=== PATIENT | male | born 1995 | race Caucasian/White ===

== ENCOUNTER 2020-07-13 07:42 | Emergency (ER) | payer OTHER ==
[2020-07-13 08:42] LABS: Absolute Lymphocytes (CBC) 1.6 K/uL (0.7-4.9); Basophils % 0.7 % (0-1.3); Hematocrit 45.7 % (39.6-49.0); Lymphocytes % 21.7 % (15.3-44.8); MPV 9.7 fL (7.6-11.3); RBC Red Blood Cell Count 5.32 M/uL (4.33-5.43)
[2020-07-13 08:52] LABS: Potassium 4.1 mmol/L (3.5-5.1)
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
[2020-07-13 13:58] VITALS: TEMP 98.3
[2020-07-13 14:07] VITALS: BP 120/80; O2SAT 100
== END 2020-07-13 09:36 | disposition home or self-care (01) ==
LOC: ER 07:42
DX: S16.1XXA Strain of muscle, fascia and tendon at neck level, initial encounter (principal); S39.012A Strain of muscle, fascia and tendon of lower back, initial encounter; K40.90 Unilateral inguinal hernia, without obstruction or gangrene, not specified as recurrent; V49.40XA Driver injured in collision with unspecified motor vehicles in traffic accident, initial encounter; F17.210 Nicotine dependence, cigarettes, uncomplicated
CPT/HCPCS: 85025; 80048; 36415; 70491; 74177; 99283; Q9967 ×2

== ENCOUNTER 2020-11-05 11:11 | Emergency (ER) | payer SELFPAY ==
--- NOTE | 2020-11-05 12:29 | EDPHYS ---
Physician Documentation [facility] Name: Cliff Tate Age: 25 yrs Sex: Male : 1995 Arrival Date: 11/05/2020 Time: 11:14 Bed 25 Private MD: ED Physician Ronnie Gunter HPI: 11/05 12:24 This 25 yrs old Male presents to ER via Ambulatory with complaints of Posion jmm Kami. 12:24 The patient's rash thought to be caused by Dermatitis Contact allergy. Onset: The jmm symptoms/episode began/occurred gradually, 1 day(s) ago. Associated signs and symptoms: Pertinent positives: itching, Pertinent negatives: difficulty breathing, fever, nausea, swelling of lips, swelling of throat, swelling of tongue, vomiting, wheezing. This is a 25 year old male with no chronic medical conditions that presents to the ED with complaints of rash to the arms and face. Patient states he was cleaning his dog kennel which is outside this past Tuesday. Symptoms developed yesterday. Denies fever. . Historical: - Allergies: 11:27 No Known Allergies; ll1 - PMHx: 11:27 None; ll1 - PSHx: 11:27 None; ll1 - Immunization history:: Flu vaccine is not up to date. - Social history:: Smoking status: Patient reports the use of cigarette tobacco products, denies chronic smoking, but will smoke occasionally. ROS: 12:24 Constitutional: Negative for fever, chills, and weight loss, Cardiovascular: Negative jmm for chest pain, palpitations, and edema, Respiratory: Negative for shortness of breath, cough, wheezing, and pleuritic chest pain. 12:24 Skin: Positive for rash. 12:24 All other systems are negative. Exam: 12:24 Constitutional: This is a well developed, well nourished patient who is awake, alert, jmm and in no acute distress. 12:24 Eyes: EOMI, no conjunctival erythema appreciated ENT: Moist Mucus Membranes Neck: Trachea midline, Supple Chest/axilla: Normal chest wall appearance and motion. Cardiovascular: Regular rate and rhythm. No edema appreciated Respiratory: Normal respirations, no respiratory distress appreciated Abdomen/GI: Non distended, soft Back: Normal ROM 12:24 MS/ Extremity: Moves all extremities, no obvious deformities appreciated, no edema noted to the lower extremities Neuro: Awake and alert, normal gait Psych: Behavior is normal, Mood is normal, Patient is cooperative and pleasant 12:24 Head/face: Noted is rash, consistent with poison kami 12:24 Skin: contact dermatitis, on the face, right arm and left arm. Vital Signs: 11:25 Pulse 67; Resp 16; Temp 97.9; Pulse Ox 99% ; Weight 102.06 kg; Height 6 ft. 0 in. ll1 (182.88 cm); Pain 0/10; 11:25 BP 148 / 85; ll1 12:14 BP 135 / 84; Pulse 75; Resp 16 S; Pulse Ox 98% on R/A; ca1 13:07 BP 131 / 83; Pulse 71; Resp 16 S; Pulse Ox 99% on R/A; ca1 11:25 Body Mass Index 30.52 (102.06 kg, 182.88 cm) ll1 MDM: 12:17 Patient medically screened. [facility] 12:27 Data reviewed: vital signs, nurses notes. Counseling: I had a detailed discussion with chandrika the patient and/or guardian regarding: the historical points, exam findings, and any diagnostic results supporting the discharge/admit diagnosis, the need for outpatient follow up, to return to the emergency department if symptoms worsen or persist or if there are any questions or concerns that arise at home. ED course: Patient is alert and non toxic in appearance in the ED. No signs of resp distress. patient is advised to follow up with pcp and otherwise given strict return precautions. Patient understood and agrees with the plan of care. . Administered Medications: 12:56 Drug: Decadron 10 mg Route: IM; Site: left deltoid; ca1 13:06 Follow up: Response: No adverse reaction ca1 Disposition: 17:53 Co-signature as Attending Physician, Ronnie Gunter MD available for consultation at ps1 all times. Signature for administrative purposes. Did not see or evaluate the patient unless otherwise noted. . Disposition: 11/05/20 12:28 Discharged to Home. Impression: Allergic contact dermatitis. - Condition is Stable. - Discharge Instructions: Poison Kami Dermatitis. - Prescriptions for Hydroxyzine HCl 25 mg Oral Tablet - take 1 tablet by ORAL route every 6 hours As needed; 30 tablet. Prednisone 20 mg Oral Tablet - take 3 tablets by ORAL route once daily for 12 days please take 3 tabs by mouth daily for 3 days, then 2 tabs by mouth daily for 3 days, then 1 tab by mouth daily for 3 days, then 1/2 tab by mouth daily for 3 days.; 20 tablet. - Work release form, Medication Reconciliation Form, Thank You Letter, Antibiotic Education, Prescription Opioid Use form. - Follow up: Private Physician; When: 2 - 3 days; Reason: Recheck today's complaints, Continuance of care, Re-evaluation by your physician. Signatures: Jaylen Barlow PA PA jmm Singer, Phillip, MD MD ps1 Yara Keith, RN RN ca1 Edelmira Zelaya RN RN ll1 Corrections: (The following items were deleted from the chart) 13:07 12:28 11/05/2020 12:28 Discharged to Home. Impression: Allergic contact dermatitis. ca1 Condition is Stable. Forms are Medication Reconciliation Form, Thank You Letter, Antibiotic Education, Prescription Opioid Use. Follow up: Private Physician; When: 2 - 3 days; Reason: Recheck today's complaints, Continuance of care, Re-evaluation by your physician. chandrika
--- NOTE | 2020-11-05 12:29 | ER ---
Nurse's Notes [facility] Name: Cliff Tate Age: 25 yrs Sex: Male : 1995 Arrival Date: 11/05/2020 Time: 11:14 Bed 25 Private MD: Diagnosis: Allergic contact dermatitis Presentation: 11/05 11:25 Chief complaint: Patient states: Rash with itching to arms and face for 2 days. ll1 Believes he has poison eda. No SOB or fever. Coronavirus screen: Client denies travel out of the [place] in the last 14 days. At this time, the client does not indicate any symptoms associated with coronavirus-19. Ebola Screen: Patient denies travel to an Ebola-affected area in the 21 days before illness onset. Initial Sepsis Screen: Does the patient meet any 2 criteria? No. Patient's initial sepsis screen is negative. Does the patient have a suspected source of infection? Yes: Skin breakdown/wound. Risk Assessment: Do you want to hurt yourself or someone else? Patient reports no desire to harm self or others. Onset of symptoms was November 04, 2020. 11:25 Method Of Arrival: [facility] 11:25 Acuity: NICOLA 4 ll1 Historical: - Allergies: 11:27 No Known Allergies; ll1 - PMHx: 11:27 None; ll1 - PSHx: 11:27 None; ll1 - Immunization history:: Flu vaccine is not up to date. - Social history:: Smoking status: Patient reports the use of cigarette tobacco products, denies chronic smoking, but will smoke occasionally. Screenin:14 Abuse screen: Denies threats or abuse. Denies injuries from another. Nutritional ca1 screening: No deficits noted. Tuberculosis screening: No symptoms or risk factors identified. Fall Risk None identified. Assessment: 12:14 General: Appears in no apparent distress. comfortable, Behavior is calm, cooperative, ca1 appropriate for age. Pain: Denies pain. Neuro: Level of Consciousness is awake, alert, obeys commands, Oriented to person, place, time, situation. Respiratory: Airway is patent Respiratory effort is even, unlabored, Respiratory pattern is regular, symmetrical, Breath sounds are clear bilaterally. Denies shortness of breath. EENT: Throat is clear. Derm: Skin is intact, is healthy with good turgor, Skin is pink, warm \T\ dry. Rash noted that is itchy, red, on face, right arm and left arm. Musculoskeletal: Circulation, motion, and sensation intact. Capillary refill < 3 seconds. 13:07 Reassessment: Patient appears in no apparent distress at this time. Patient is alert, ca1 oriented x 3, equal unlabored respirations, skin warm/dry/pink. Vital Signs: 11:25 Pulse 67; Resp 16; Temp 97.9; Pulse Ox 99% ; Weight 102.06 kg; Height 6 ft. 0 in. ll1 (182.88 cm); Pain 0/10; 11:25 BP 148 / 85; ll1 12:14 BP 135 / 84; Pulse 75; Resp 16 S; Pulse Ox 98% on R/A; ca1 13:07 BP 131 / 83; Pulse 71; Resp 16 S; Pulse Ox 99% on R/A; ca1 11:25 Body Mass Index 30.52 (102.06 kg, 182.88 cm) ll1 ED Course: 11:14 Patient arrived in ED. ds1 11:27 Triage completed. ll1 11:28 Arm band placed on. ll1 12:03 Jaylen Barlow PA is PHCP. chandrika 12:03 Ronnie Gunter MD is Attending Physician. chandrika 12:10 Yara Keith, RN is Primary Nurse. ca1 12:14 Patient has correct armband on for positive identification. Bed in low position. Call ca1 light in reach. Side rails up X 1. Pulse ox on. NIBP on. 13:07 No provider procedures requiring assistance completed. Patient did not have IV access ca1 during this emergency room visit. Administered Medications: 12:56 Drug: Decadron 10 mg Route: IM; Site: left deltoid; ca1 13:06 Follow up: Response: No adverse reaction ca1 Outcome: 12:28 Discharge ordered by . chandrika 13:07 Discharged to home ambulatory. ca1 13:07 Condition: stable 13:07 Discharge instructions given to patient, Instructed on discharge instructions, follow up and referral plans. no drinking with medication, no driving heavy equipment, medication usage, Demonstrated understanding of instructions, follow-up care, medications, Prescriptions given X 2. 13:07 Patient left the ED. ca1 Signatures: Jaylen Barlow PA PA Serena Botello ds1 Yara Keith RN RN ca1 Garcia, Edelmira, RN RN ll1
[2020-11-05] MEDS ORDERED: dexAMETHasone 10 MG/ML VIAL ONE (13:12)
[2020-11-05 13:14] VITALS: TEMP 97.9
[2020-11-05 13:16] VITALS: BP 131/83; O2SAT 99
== END 2020-11-05 13:07 | disposition home or self-care (01) ==
LOC: ER 11:11
DX: L23.7 Allergic contact dermatitis due to plants, except food (principal); F17.210 Nicotine dependence, cigarettes, uncomplicated
CPT/HCPCS: 96372; 99283; J1100

== ENCOUNTER 2021-08-22 10:52 | Inpatient (IN) | payer SELFPAY ==
[2021-08-22] MEDS ORDERED: MORPHINE 4 MG/ML SYR ONE (12:12)
[2021-08-22] MEDS ORDERED: NA CHLORIDE 0.9% 1,000 ML ONE (12:12)
[2021-08-22] MEDS ORDERED: ONDANSETRON 4 MG/2 ML VIAL ONE (12:12)
[2021-08-22] MEDS ORDERED: PIPERACIL/TAZO 3.375 GM VIAL IV ONE (12:30)
[2021-08-22] MEDS ORDERED: NA CHLORIDE 0.9% 100 ML ONE (12:30)
[2021-08-22 12:31] LABS: Absolute Lymphocytes (CBC) 2.8 K/uL (0.7-4.9); Hematocrit 45.1 % (39.6-49.0)
[2021-08-22] MEDS ORDERED: NA CHLORIDE 0.9% 50 ML ONE (12:32)
[2021-08-22 12:47] LABS: ALT/SGPT 88 U/L (12-78); AST/SGOT 34 U/L (15-37); Albumin 3.9 g/dL (3.4-5.0); Alkaline Phosphatase 81 U/L (45-117); BUN Blood Urea Nitrogen 15 mg/dL (7-18); Bicarbonate 27 mmol/L (21-32); Bilirubin Direct < 0.1 mg/dL (0-0.2); Bilirubin Total 0.4 mg/dL (0.2-1.0); Glucose Level 98 mg/dL (74-106); Lipase 60 U/L (73-393); Potassium 4.4 mmol/L (3.5-5.1); Protein, Total 7.7 g/dL (6.4-8.2); Sodium Level 139 mmol/L (136-145)
--- NOTE | 2021-08-22 13:55 | EDPHYS ---
Physician Documentation [facility] Name: Cliff Tate Age: 26 yrs Sex: Male : 1995 Arrival Date: 08/22/2021 Time: 10:56 Bed 2 Private MD: MATTHIAS Physician Zackary Nunes HPI: 08/22 12:10 This 26 yrs old Male presents to ER via Ambulatory with complaints of Hernia. pasquale 12:10 The patient presents with abdominal distention in the left lower quadrant. Onset: The pasquale symptoms/episode began/occurred last night. The patient presents with swelling, tenderness, that is moderate. Onset: The symptoms/episode began/occurred 1 day(s) ago. Modifying factors: The symptoms are alleviated by nothing, remaining still, the symptoms are aggravated by pressure. Associated signs and symptoms: Pertinent positives: abdominal pain. Modifying factors: The symptoms are alleviated by nothing, remaining still, the symptoms are aggravated by jumping, nothing. Severity of pain: At its worst the pain was moderate in the emergency department the pain is unchanged. Historical: - Allergies: 11:25 No Known Allergies; iw - Home Meds: 11:25 None [Active]; iw - PMHx: 11:25 None; iw - PSHx: 11:25 None; iw - Immunization history:: Client reports having NOT received the Covid vaccine. - Social history:: Smoking status: Patient reports the use of cigarette tobacco products, denies chronic smoking, but will smoke occasionally. - Family history:: not pertinent. ROS: 12:10 Constitutional: Negative for fever, chills, and weight loss, Eyes: Negative for injury, pasquale pain, redness, and discharge, ENT: Negative for injury, pain, and discharge, Neck: Negative for injury, pain, and swelling, Cardiovascular: Negative for chest pain, palpitations, and edema, Respiratory: Negative for shortness of breath, cough, wheezing, and pleuritic chest pain, Back: Negative for injury and pain, : Negative for injury, bleeding, discharge, and swelling, MS/Extremity: Negative for injury and deformity, Skin: Negative for injury, rash, and discoloration, Neuro: Negative for headache, weakness, numbness, tingling, and seizure, Psych: Negative for depression, anxiety, suicide ideation, homicidal ideation, and hallucinations, Allergy/Immunology: Negative for hives, rash, and allergies, Endocrine: Negative for neck swelling, polydipsia, polyuria, polyphagia, and marked weight changes, Hematologic/Lymphatic: Negative for swollen nodes, abnormal bleeding, and unusual bruising. 12:10 Abdomen/GI: Positive for abdominal pain, abdominal cramps, of the left lower quadrant. 12:10 : Positive for of the groin and left femoral area. Exam: 12:10 Constitutional: This is a well developed, well nourished patient who is awake, alert, pasquale and in no acute distress. Head/Face: Normocephalic, atraumatic. Eyes: Pupils equal round and reactive to light, extra-ocular motions intact. Lids and lashes normal. Conjunctiva and sclera are non-icteric and not injected. Cornea within normal limits. Periorbital areas with no swelling, redness, or edema. ENT: Nares patent. No nasal discharge, no septal abnormalities noted. Tympanic membranes are normal and external auditory canals are clear. Oropharynx with no redness, swelling, or masses, exudates, or evidence of obstruction, uvula midline. Mucous membranes moist. Neck: Trachea midline, no thyromegaly or masses palpated, and no cervical lymphadenopathy. Supple, full range of motion without nuchal rigidity, or vertebral point tenderness. No Meningismus. Chest/axilla: Normal chest wall appearance and motion. Nontender with no deformity. No lesions are appreciated. Cardiovascular: Regular rate and rhythm with a normal S1 and S2. No gallops, murmurs, or rubs. Normal PMI, no JVD. No pulse deficits. Respiratory: Lungs have equal breath sounds bilaterally, clear to auscultation and percussion. No rales, rhonchi or wheezes noted. No increased work of breathing, no retractions or nasal flaring. Back: No spinal tenderness. No costovertebral tenderness. Full range of motion. Skin: Warm, dry with normal turgor. Normal color with no rashes, no lesions, and no evidence of cellulitis. MS/ Extremity: Pulses equal, no cyanosis. Neurovascular intact. Full, normal range of motion. Neuro: Awake and alert, GCS 15, oriented to person, place, time, and situation. Cranial nerves II-XII grossly intact. Motor strength 5/5 in all extremities. Sensory grossly intact. Cerebellar exam normal. Normal gait. Psych: Awake, alert, with orientation to person, place and time. Behavior, mood, and affect are within normal limits. 12:10 Abdomen/GI: Inspection: distension, that is moderate, in the left lower quadrant, Liver: no appreciated palpable abnormalities, Hernia: noted in the left inguinal area and left femoral area. Vital Signs: 11:24 BP 147 / 81; Pulse 77; Resp 16; Temp 97; Pulse Ox 99% on R/A; Weight 99.79 kg; Height 6 iw ft. (182.88 cm); 12:36 BP 127 / 78; Pulse 66; Resp 18; Pulse Ox 99% on R/A; zapata 13:26 BP 132 / 75; Pulse 69; Resp 18; Pulse Ox 100% ; zapata 16:16 BP 112 / 51; Pulse 80; Resp 18; Pulse Ox 100% on R/A; zapata 17:18 BP 126 / 84; Pulse 61; Resp 16; Pulse Ox 98% on R/A; ww 11:24 Body Mass Index 29.84 (99.79 kg, 182.88 cm) iw MDM: 11:26 Patient medically screened. pasquale 12:14 Differential diagnosis: bowel obstruction, diverticulitis, non-specific abd pain, pasquale pancreatitis. Data reviewed: vital signs, nurses notes, lab test result(s), radiologic studies, CT scan. Data interpreted: child monitor: not applicable for this patient encounter. Pulse oximetry: on room air is 99 %. Counseling: I had a detailed discussion with the patient and/or guardian regarding: the historical points, exam findings, and any diagnostic results supporting the discharge/admit diagnosis, lab results, radiology results, the need for further work-up and treatment in the hospital. 08/22 12:05 Order name: Basic Metabolic Panel; Complete Time: 13:15 pasquale 08/22 12:05 Order name: CBC with Diff; Complete Time: 13:15 pasquale 08/22 12:05 Order name: Hepatic Function; Complete Time: 13:15 pasquale 08/22 12:05 Order name: Lipase; Complete Time: 13:15 pasquale 08/22 14:03 Order name: SARS-COV-2 RT PCR (Document "Date of Onset" if Symptomatic) eb 08/22 14:14 Order name: Urine Dipstick-Ancillary EDMS 08/22 12:05 Order name: IV Saline Lock; Complete Time: 12:26 [facility] 08/22 12:05 Order name: Labs collected and sent; Complete Time: 12: [facility] 08/22 12:05 Order name: Urine Dipstick-Ancillary (obtain specimen); Complete Time: 14: [facility] 08/22 12:05 Order name: CT Abd/Pelvis - PO and IV Contrast pasquale Administered Medications: 12:25 Drug: Zofran (Ondansetron) 4 mg Route: IVP; Site: left antecubital; zapata 12:26 Follow up: Response: No adverse reaction zapata 12: Drug: NS 0.9% 1000 ml Route: IV; Rate: 1 bolus; Site: left antecubital; zapata 14:42 Follow up: IV Status: Completed infusion zapata 12: Drug: morphine 4 mg Route: IVP; Site: left antecubital; zapata 12:27 Follow up: Response: No adverse reaction zapata 12:32 Drug: Zosyn (piperacillin-tazobactam) 3.375 grams Route: IVPB; Infused Over: 60 mins; zapata Site: left antecubital; 14:42 Follow up: IV Status: Completed infusion zpaata Disposition Summary: 08/22/21 13:55 Hospitalization Ordered Hospitalization Status: Observation pasquale Provider: Gunner Augustine cha Location: Telemetry/MedSurg (Inpatient) pasquale Condition: Stable pasquale Problem: new pasquale Symptoms: are unchanged pasquale Bed/Room Type: Standard [facility] Room Assignment: [facility](08/22/21 17:35) dw Diagnosis - Unilateral inguinal hernia, with obstruction, without gangrene, recurrent apsquale Forms: - Medication Reconciliation Form pasquale - SBAR form [facility] Signatures: Dispatcher [employer] Ashley Cartagena RN RN dw Anderson, Corey, MD MD cha Williams, Irene, RN RN iw Au-Stager, Heather, RN RN ha Corrections: (The following items were deleted from the chart) 17:35 13:55 [facility]
--- NOTE | 2021-08-22 13:55 | ER ---
Nurse's Notes [facility] Name: Cliff Tate Age: 26 yrs Sex: Male : 1995 Arrival Date: 08/22/2021 Time: 10:56 Bed 2 Private MD: Diagnosis: Unilateral inguinal hernia, with obstruction, without gangrene, recurrent Presentation: 08/22 11:24 Chief complaint: Patient states: has an inguinal hernia on left side X 1 year, has iw always been able to push it back in but for past 12 hours has not been able to push it back in and it's hard and painful. Coronavirus screen: At this time, the client does not indicate any symptoms associated with coronavirus-19. Ebola Screen: Patient negative for fever greater than or equal to 101.5 degrees Fahrenheit, and additional compatible Ebola Virus Disease symptoms Patient denies exposure to infectious person. Patient denies travel to an Ebola-affected area in the 21 days before illness onset. No symptoms or risks identified at this time. Initial Sepsis Screen: Does the patient meet any 2 criteria? No. Patient's initial sepsis screen is negative. Does the patient have a suspected source of infection? No. Patient's initial sepsis screen is negative. Risk Assessment: Do you want to hurt yourself or someone else? Patient reports no desire to harm self or others. Onset of symptoms was August 22, 2021. 11:24 Method Of Arrival: Ambulatory iw 11:24 Acuity: NICOLA 3 iw Historical: - Allergies: 11:25 No Known Allergies; iw - Home Meds: 11:25 None [Active]; iw - PMHx: 11:25 None; iw - PSHx: 11:25 None; iw - Immunization history:: Client reports having NOT received the Covid vaccine. - Social history:: Smoking status: Patient reports the use of cigarette tobacco products, denies chronic smoking, but will smoke occasionally. - Family history:: not pertinent. Screenin:38 Abuse screen: Denies threats or abuse. Denies injuries from another. Nutritional zapata screening: No deficits noted. Tuberculosis screening: No symptoms or risk factors identified. Fall Risk None identified. Assessment: 11:38 General: Appears uncomfortable, Behavior is calm, cooperative. Pain: Complains of pain zapata in abdomen and left inner thigh Quality of pain is described as pressure, sharp. GI: Reports lower abdominal pain. 12:40 Reassessment: Patient appears in no apparent distress at this time. No changes from ww previously documented assessment. Patient and/or family updated on plan of care and expected duration. Pain level reassessed. Patient is alert, oriented x 3, equal unlabored respirations, skin warm/dry/pink. 14:00 Reassessment: Patient appears in no apparent distress at this time. No changes from ww previously documented assessment. Patient and/or family updated on plan of care and expected duration. Pain level reassessed. Patient is alert, oriented x 3, equal unlabored respirations, skin warm/dry/pink. 16:55 Reassessment: Patient appears in no apparent distress at this time. No changes from ww previously documented assessment. Patient and/or family updated on plan of care and expected duration. Pain level reassessed. Patient is alert, oriented x 3, equal unlabored respirations, skin warm/dry/pink. Vital Signs: 11:24 BP 147 / 81; Pulse 77; Resp 16; Temp 97; Pulse Ox 99% on R/A; Weight 99.79 kg; Height 6 iw ft. (182.88 cm); 12:36 BP 127 / 78; Pulse 66; Resp 18; Pulse Ox 99% on R/A; zapata 13:26 BP 132 / 75; Pulse 69; Resp 18; Pulse Ox 100% ; zapata 16:16 BP 112 / 51; Pulse 80; Resp 18; Pulse Ox 100% on R/A; zapata 17:18 BP 126 / 84; Pulse 61; Resp 16; Pulse Ox 98% on R/A; ww 11:24 Body Mass Index 29.84 (99.79 kg, 182.88 cm) ED Course: 10:56 Patient arrived in ED. mr 11:25 Triage completed. iw 11:26 Zackary Nunes MD is Attending Physician. pasquale 11:38 Patient has correct armband on for positive identification. zapata 11:38 No provider procedures requiring assistance completed. zapata 11:39 Arm band placed on. zapata 12:19 Warm blanket given. Pulse ox on. NIBP on. mh5 12:26 Basic Metabolic Panel Sent. zapata 12:26 CBC with Diff Sent. zapata 12:26 Hepatic Function Sent. zapata 12:26 Lipase Sent. zapata 12:36 Inserted saline lock: 18 gauge in left antecubital area, using aseptic technique. zapata 13:52 CT Abd/Pelvis - PO and IV Contrast In Process Unspecified. EDMS 13:53 Gunner Augustine MD is Hospitalizing Provider. pasquale Administered Medications: 12:25 Drug: Zofran (Ondansetron) 4 mg Route: IVP; Site: left antecubital; zapata 12:26 Follow up: Response: No adverse reaction zapata 12:26 Drug: NS 0.9% 1000 ml Route: IV; Rate: 1 bolus; Site: left antecubital; zapata 14:42 Follow up: IV Status: Completed infusion zapata 12:26 Drug: morphine 4 mg Route: IVP; Site: left antecubital; zapata 12:27 Follow up: Response: No adverse reaction zapata 12:32 Drug: Zosyn (piperacillin-tazobactam) 3.375 grams Route: IVPB; Infused Over: 60 mins; zapata Site: left antecubital; 14:42 Follow up: IV Status: Completed infusion zapata Outcome: 13:55 Decision to Hospitalize by Provider. pasquale 18:36 Patient left the ED. zapata Signatures: Dispatcher [employer] EDMS Zackary Nunes MD MD cha Rivera, Mary mr Williams, Irene, RN Carin Torres [facility] June Gong, RN RN Ghada Clemens RN RN zapata
--- NOTE | 2021-08-22 14:02 | RAD REPORT ---
EXAM DESCRIPTION: CT - Abdomen Pelvis W Contrast - 08/22/2021 1:52 pm CLINICAL HISTORY: ABD PAIN COMPARISON: No comparisonsAbdomen Pelvis W Contrast dated 07/13/2020 TECHNIQUE: Biphasic, helical CT imaging of the abdomen and pelvis was performed following 100 ml non -ionic IV contrast. Oral contrast was administered. All CT scans are performed using dose optimization technique as appropriate and may include automated exposure control or mA/KV adjustment according to patient size. FINDINGS: No suspicious findings in the lung bases. The liver, spleen, and pancreas show no suspicious findings. Gallbladder and biliary tree are also wi thout suspicious finding. Liver attenuation is borderline to mildly fatty infiltrated. Symmetric renal function is seen with no hydronephrosis or suspicious renal mass. No pyelonephritis o r acute parenchymal process. No bladder abnormalities. No adrenal abnormalities. No gastric dilatation or gastric wall thickening. Small bowel is unremarkable. Appendix is normal. Th e patient has a large left inguinal hernia containing only fat. This is approximately 6 cm in diamete r measuring slightly larger than 2020 study. The herniated fat is congested and edematous. Small left hydrocele is present. No bulky lymphadenopathy or mass. No free air, free fluid or pneumatosis. No suspicious bony findings. IMPRESSION: Large left inguinal hernia 6 cm in diameter, increased slightly in size from 2020, conta ining only fatty tissue. The herniated fat is congested and edematous.
[2021-08-22 14:15] LABS: Urine Blood Negative (Negative); Urine Glucose Negative (Negative); Urine Protein Negative (Negative); Urine Specific Gravity 1.025 (1.005-1.030)
[2021-08-22] MEDS ORDERED: ACETAMINOPHEN 500 MG TAB PO PRN (15:55)
[2021-08-22] MEDS ORDERED: ONDANSETRON 4 MG/2 ML VIAL IV PRN (15:55)
[2021-08-22] MEDS ORDERED: PIPER TAZO 3.375 GM in NA CHLORIDE 0.9% 100 ML IV SCH (17:00)
[2021-08-22] MEDS: MORPHINE 4 MG/ML SYR IV PRN (20:17)
[2021-08-22] MEDS: FAMOTIDINE 20 MG/2 ML VIAL IV SCH (20:17)
[2021-08-22] MEDS: D5 0.45 NS 1,000 ML IV SCH (20:18)
[2021-08-22] MEDS: PIPER TAZO 3.375 GM in NA CHLORIDE 0.9% 100 ML IV SCH (20:18)
[2021-08-22 23:24] VITALS: BMI 29.2
[2021-08-23] MEDS: MORPHINE 4 MG/ML SYR IV PRN ×2 (02:42→08:59)
[2021-08-23] MEDS: D5 0.45 NS 1,000 ML IV SCH (02:44)
[2021-08-23 05:38] LABS: Absolute Lymphocytes (CBC) 2.2 K/uL (0.7-4.9); Hematocrit 42.1 % (39.6-49.0); Lymphocytes % 28.5 % (15.3-44.8); RBC Red Blood Cell Count 4.89 M/uL (4.33-5.43)
[2021-08-23] MEDS: PIPER TAZO 3.375 GM in NA CHLORIDE 0.9% 100 ML IV SCH ×3 (05:51→12:00)
[2021-08-23 06:08] LABS: Albumin 3.2 g/dL (3.4-5.0); Bilirubin Direct 0.1 mg/dL (0-0.2); Bilirubin Total 0.6 mg/dL (0.2-1.0); Protein, Total 6.3 g/dL (6.4-8.2)
[2021-08-23] MEDS: FAMOTIDINE 20 MG/2 ML VIAL IV SCH (09:00)
[2021-08-23] MEDS ORDERED: Ringers Lactate 1,000 ML IV ONE (09:24)
[2021-08-23] MEDS: BUPIVACAINE 0.5% Inj,MDV 50 mL VIAL ONE ×2 (09:38→10:25)
[2021-08-23] MEDS ORDERED: SUCCINYLCHOLINE 20 MG/ML (10 ML) IV ONE (10:00)
[2021-08-23] MEDS ORDERED: FENTANYL CITR 250 MCG/5 ML ONE (10:06)
[2021-08-23] MEDS ORDERED: MIDAZOLAM HCL 2 MG/2 ML INJ ONE (10:06)
[2021-08-23] MEDS ORDERED: propofoL 200 MG/20 ML VIAL IV ONE (10:06)
[2021-08-23] MEDS ORDERED: ROCURONIUM 50 MG/5 ML VIAL IV ONE (10:07)
[2021-08-23] MEDS ORDERED: dexAMETHasone 10 MG/ML VIAL ONE (10:35)
--- NOTE | 2021-08-23 10:48 | HP ---
Date of Admission: 08/22/2021 Diagnosis: Incarcerated left inguinal hernia. History Of Present Illness: This is the case of a 26-year-old patient who has a hernia on the left s rae reducible for the last few months, but yesterday the hernia came back on. He decided to go to [facility] ER last night. He was diagnosed with incarceration of a hernia with doctor trying to reduce that, but it was not possible. So, they called me to see if I can fix the hernia. The area is tender. He denies any nausea, vomiting, diarrhea, dysuria, hematuria, hematochezia, or melena. He denies any r ecent traveling out of the country. Denies any family member sick at home. Denies any shortness of breath or any chest pain. Denies any fever. Past Medical History: None. Past Surgical History: None. Allergies: NONE. Social History: He does not smoke. He does not drink alcohol. Family History: Noncontributory. Physical Examination: General: The patient is awake, alert. HEENT: Pupils are equal and reactive, anicteric. Neck: Supple. Chest: Clear. Heart: S1, S2. Abdomen: Soft and depressible. Left lower quadrant tenderness with incarcerated hernia, tender, can not be reduced. Genitourinary: Scrotum with no erythema. Rectal: Deferred. Extremities: Good capillary refill. Neuro: Cranial nerves 2 through 12 grossly within normal limits. Laboratory Data: Blood work reviewed. CAT scan shows incarceration with swelling of the tissue insi de of the left inguinal hernia. Assessment: An incarcerated possibly strangulated left inguinal hernia. The benefits, alternatives, and risks of left inguinal hernia repair with possible mesh fully explained, which include, but not limited to infection, bleeding, damage to adjacent structures as complication, recurrence, chronic pa in, chronic numbness, PA, and even . He also understands this may not relieve his symptoms. He might need more than one surgical intervention. He understands we are going to be using mesh in thi s case. Pros and cons of mesh use were discussed with the patient and after allowing him to ask ques tions and answered to his satisfaction he did consent for the use of mesh. He also understands in [facility] situation that we have bowel involved, which we do not believe in this case at this moment, ___ damage to the bowel he may need some bowel resection. He understands that risk. The OR was call ed. HAYNES/SHAHEED Voice ID: [id number]
[2021-08-23] MEDS ORDERED: GLYCOPYRROLATE 0.2 MG/ML SYR ONE (11:13)
[2021-08-23] MEDS ORDERED: ONDANSETRON 4 MG/2 ML VIAL ONE (11:13)
[2021-08-23] MEDS ORDERED: NEOSTIGMINE 1 MG/ML -5 ML ONE (11:13)
[2021-08-23] MEDS ORDERED: HYDROCODONE/APAP 5/325 MG TAB PO PRN (11:21)
[2021-08-23] MEDS ORDERED: KETOROLAC 30 MG/ML INJ ONE (11:53)
[2021-08-23 12:04] VITALS: O2SAT 99
--- NOTE | 2021-08-23 12:21 | OP ---
Date of Procedure: 08/23/2021 Surgeon: Gunner Augustine MD Preoperative Diagnosis: Incarcerated large left inguinal hernia. Postoperative Diagnosis: Incarcerated large left inguinal hernia. Procedure: Open repair of incarcerated large left inguinal hernia with mesh. Specimen: Hernia sac. Estimated Blood Loss: Less than 10 cc. Findings: Incarcerated omentum and large hernia sac going all the way down to the scrotum present at the testicle. Anesthesia: General plus local. Implant: A large mesh, plug, and sheath. Indication: This is the case of a 26-year-old patient, who comes to us with a tender left inguinal h ernia, unable to be reduced. He was admitted to the hospital for repair. The benefits, alternatives , and risks of open repair of incarcerated large left inguinal hernia with mesh fully explained, whic h include, but not limited to infection, bleeding, damage to adjacent structures, anesthesia complica tion, recurrence, [place] and even . He also understands this may not relieve any symptoms. He migh t need more than one surgical intervention. He understood, signed the consent. Procedure In Detail: The patient was brought to the operating room, placed in supine position. Anes thesia was done without complication. Abdomen was prepped and draped in the usual sterile fashion. Local anesthesia was applied followed by sharp incision of the skin after time-out on the left inguin al region. Incision was carried down to Gerber fascia until we find external oblique aponeurosis jewel t was opened in direction of the fibers. Ilioinguinal nerve and iliohypogastric nerve were identifie d, protected behind external oblique aponeurosis. This was a large hernia going down to the scrotum. It was compressing the spermatic cord and testicle. Once we were able to visualize the hernia sac, we put a [place] around the spermatic cord. We were able to open the hernia sac and reduced the ome ntal, which seemed to be viable and incarcerated into the left lower quadrant. The hernia sac was di ssected carefully from the spermatic cord protecting the structures including the vas deferens and bl ood vessels. After we reduced the content, we inspected inside. We proceeded to suture ligate the h ernia sac twice with 2-0 Prolene. The hernia sac was sent for specimen. After that, I placed a larg e mesh and plug in that region and secured that with VersaTack. I have to reconstruct the floor of t he canal by using a #1 Prolene starting at the pubic tubercle, shelving edge of inguinal ligament and transversalis fascia. Then, after that, I placed a mesh and sheet on the floor of the canal securin g that to the pubic tubercle, shelving edge of inguinal ligament and transversalis fascia. The tails of this mesh looped around the spermatic cord without any strangulation to make sure it was loose en ough to the blood vessels to go nicely through it. This was secured with VersaTack. At that moment, we irrigated the area, injection of local anesthetic, made sure the testicles were still in the scro chong. At that moment, I proceeded then to reconstruct the superficial inguinal ring after putting the ilioinguinal nerve and iliohypogastric nerve back into the inguinal canal, reconstructed the superfi cial inguinal ring with 2-0 Prolene and closed the external oblique aponeurosis making sure the nerve s were not included. The area was irrigated. A 3-0 chromic was used for the subcutaneous tissue and then skin with anya. Sponge count and instrument counts correct. The patient tolerated the proc edure well. The patient was sent to recovery in stable condition. The patient will be back on the taya. If he tolerates diet, then he will be able to go home this afternoon and follow up in my offic e in 1 week. Call for appointment at [phone]. Medications: Include Tylenol No.3 q.4 hours p.r.n. pain, Bactrim DS p.o. b.i.d. Cold compress to th e left inguinal region for 24 hours. Follow in my office in 1 week. Call for appointment at [phone]. Keep area dry for 48 hours, then m ay shower. DALLAS/KAIL Voice ID: [id number] Report ID: [id number]
[2021-08-23 16:35] VITALS: BP 130/65; TEMP 96.9
== END 2021-08-23 17:12 | disposition home or self-care (01) | DRG 352 ==
LOC: ER 10:52 → ERHOLD 14:19 → 2ND 18:00 → OBSVTOIN 08-23 11:26
PROVIDERS: ADMIT Surgery; ATTEND Surgery
PROC: 0YU60JZ Supplement Left Inguinal Region with Synthetic Substitute, Open Approach (ICD-10-PCS; principal; 2021-08-23 10:00)
DX: K40.31 Unilateral inguinal hernia, with obstruction, without gangrene, recurrent (principal); F17.210 Nicotine dependence, cigarettes, uncomplicated; Z20.822 Contact with and (suspected) exposure to COVID-19
CPT/HCPCS: 36415; 74177; 80048; 80076; 81003; 83690; 85025; 88302; 94010; 96365; 96366; 96375; 99284; G0378; J0330; J1100; J2250; J2405; J2543; J2704; J2710; J3010; J7030; J7120; J7799; Q9967; U0003